=== PATIENT | female | born 1940 | race Caucasian/White ===

== ENCOUNTER 2017-09-02 11:01 | Inpatient (IN) | payer MEDICARE, OTHER ==
[2017-09-02] MEDS ORDERED: ONDANSETRON 4 MG INJ IV (12:00)
[2017-09-02] MEDS: HYDROmorphONE 1 MG/ML SYG IV ×2 (12:07→18:19)
[2017-09-02] MEDS: ONDANSETRON 4 MG INJ IV (12:08)
[2017-09-02 12:41] LABS: ADD MAN DIFF? NO
[2017-09-02 12:55] LABS: BASOPHILS % 0.3 % (0.0-2.0); EOSINOPHILS # 0.1 10^3/ul (0.0-0.5); EOSINOPHILS % 0.7 % (0.0-7.0); HEMATOCRIT 44.4 % (37.0-47.0); HEMOGLOBIN 14.5 g/dl (12.0-16.0); LYMPHOCYTES # 1.1 10^3/ul (0.8-2.9); LYMPHOCYTES % 9.8 % (15.0-51.0); MEAN CORPUSCULAR HEMOGLOBIN 31.2 pg (29.0-33.0); MEAN CORPUSCULAR HGB CONC 32.7 g/dl (32.0-37.0); MEAN CORPUSCULAR VOLUME 95.5 fl (82.0-101.0); MEAN PLATELET VOLUME 10.7 fl (7.4-10.4); MONOCYTE # 0.7 10^3/ul (0.3-0.9); MONOCYTES % 6.9 % (0.0-11.0); NEUTROPHIL # 8.8 10^3/ul (1.6-7.5); NEUTROPHILS % 81.9 % (39.0-77.0); PLATELET COUNT 176 10^3/UL (140-415); RED BLOOD COUNT 4.65 10^6/ul (4.20-5.40); RED CELL DISTRIBUTION WIDTH 13.8 % (11.5-14.5)
[2017-09-02 12:55] LABS: WHITE BLOOD COUNT 10.7 10^3/ul (4.8-10.8)
[2017-09-02 13:03] LABS: ANION GAP 12 (8-16); BLOOD UREA NITROGEN 13 mg/dl (7-20); CALCIUM 9.9 mg/dl (8.4-10.2); CARBON DIOXIDE 32 mmol/L (21-31); CHLORIDE 105 mmol/L (97-110); CREATININE 1.01 mg/dl (0.44-1.00); GLUCOSE 109 mg/dl (70-220); POTASSIUM 5.5 mmol/L (3.5-5.1); SODIUM 143 mmol/L (135-144)
[2017-09-02] MEDS ORDERED: oxyCODONE 5 MG TAB PO ×5 (15:30→16:00)
[2017-09-02] MEDS: oxyCODONE 5 MG TAB PO ×2 (16:36→22:52)
[2017-09-02] MEDS ORDERED: NAPROXEN 500 MG TAB PO (22:00)
[2017-09-02] MEDS ORDERED: ALBUTEROL HFA 8 GM INHALER INH (22:30)
[2017-09-02] MEDS: LOSARTAN 50 MG TAB PO (22:48)
[2017-09-02] MEDS: ACETAMINOPHEN 325 MG TAB PO (23:43)
[2017-09-03] MEDS: HYDROmorphONE 1 MG/ML SYG IV ×4 (00:58→18:47)
[2017-09-03] MEDS: ONDANSETRON 4 MG INJ IV ×4 (00:58→18:47)
[2017-09-03 05:00] LABS: ADD MAN DIFF? NO
[2017-09-03 05:06] LABS: WHITE BLOOD COUNT 9.1 10^3/ul (4.8-10.8)
[2017-09-03 05:06] LABS: BASOPHILS % 0.2 % (0.0-2.0); EOSINOPHILS # 0.3 10^3/ul (0.0-0.5); EOSINOPHILS % 2.7 % (0.0-7.0); HEMATOCRIT 42.4 % (37.0-47.0); HEMOGLOBIN 13.4 g/dl (12.0-16.0); LYMPHOCYTES # 1.9 10^3/ul (0.8-2.9); LYMPHOCYTES % 21.1 % (15.0-51.0); MEAN CORPUSCULAR HEMOGLOBIN 30.1 pg (29.0-33.0); MEAN CORPUSCULAR HGB CONC 31.6 g/dl (32.0-37.0); MEAN CORPUSCULAR VOLUME 95.3 fl (82.0-101.0); MEAN PLATELET VOLUME 10.9 fl (7.4-10.4); MONOCYTES % 10.6 % (0.0-11.0); NEUTROPHIL # 5.9 10^3/ul (1.6-7.5); NEUTROPHILS % 65.1 % (39.0-77.0); PLATELET COUNT 166 10^3/UL (140-415); RED BLOOD COUNT 4.45 10^6/ul (4.20-5.40); RED CELL DISTRIBUTION WIDTH 13.8 % (11.5-14.5)
[2017-09-03 05:31] LABS: ALANINE AMINOTRANSFERASE 15 IU/L (13-69); ALBUMIN 3.5 g/dl (3.3-4.9); ALKALINE PHOSPHATASE 65 IU/L (42-121); ANION GAP 10 (8-16); ASPARTATE AMINO TRANSFERASE 24 IU/L (15-46); BILIRUBIN,INDIRECT 0.4 mg/dl (0-1.1); BILIRUBIN,TOTAL 0.4 mg/dl (0.2-1.3); BLOOD UREA NITROGEN 14 mg/dl (7-20); CALCIUM 9.8 mg/dl (8.4-10.2); CARBON DIOXIDE 32 mmol/L (21-31); CHLORIDE 101 mmol/L (97-110); CREATININE 1.07 mg/dl (0.44-1.00); GLUCOSE 106 mg/dl (70-220); POTASSIUM 5.4 mmol/L (3.5-5.1); SODIUM 138 mmol/L (135-144); TOTAL PROTEIN 6.4 g/dl (6.1-8.1)
[2017-09-03 05:42] LABS: LIPASE < 10 U/L (23-300)
[2017-09-03] MEDS: PANTOPRAZOLE (EC) 40 MG TAB PO ×2 (06:00→22:00)
[2017-09-03] MEDS: IOHEXOL 14.3 MG(I)/ML (ADULT) BTL PO (06:58)
[2017-09-03] MEDS ORDERED: NON-FORMULARY/PATIENT OWN MED (Mirabegron (Myrbetriq) 50 MG) PO (09:00)
[2017-09-03] MEDS: oxyCODONE 5 MG TAB PO ×2 (10:32→21:30)
[2017-09-03] MEDS: ESTROGENS CONJUGATED 0.3 MG TAB PO (12:55)
[2017-09-03] MEDS: ASPIRIN (EC) 81 MG TAB PO (12:55)
[2017-09-03] MEDS: FLUOXETINE 20 MG CAP PO (12:55)
[2017-09-03] MEDS: GABAPENTIN 300 MG CAP PO ×2 (12:55→22:14)
[2017-09-03] MEDS: LIDOCAINE 5% PATCH TD (12:55)
[2017-09-03] MEDS: AMLODIPINE 5 MG TAB PO ×2 (13:35→22:14)
[2017-09-03] MEDS: ATENOLOL 50 MG TAB PO (13:35)
[2017-09-03] MEDS ORDERED: BISACODYL (EC) 5 MG TAB PO (15:30)
[2017-09-03] MEDS ORDERED: ALBUTEROL HFA 8 GM INHALER INH (16:00)
[2017-09-03] MEDS ORDERED: POTASSIUM CITRATE (SR) 5 MEQ TAB PO ×2 (21:00)
[2017-09-03] MEDS: CALCIUM POLYCARBOPHIL 625 MG TAB PO (22:02)
[2017-09-03] MEDS: DOCUSATE SODIUM 100 MG CAP PO (22:02)
[2017-09-03] MEDS: clonAZEPAM 0.5 MG TAB PO (22:02)
[2017-09-03] MEDS: ATORVASTATIN 40 MG TAB PO (22:14)
[2017-09-03] MEDS: LOSARTAN 50 MG TAB PO (22:14)
[2017-09-03] MEDS: ONDANSETRON 4 MG TAB PO (22:15)
[2017-09-04] MEDS: ONDANSETRON 4 MG INJ IV ×3 (00:42→17:42)
[2017-09-04] MEDS: HYDROmorphONE 1 MG/ML SYG IV ×2 (00:43→08:50)
[2017-09-04] MEDS: oxyCODONE 5 MG TAB PO (03:31)
[2017-09-04] MEDS: ONDANSETRON 4 MG TAB PO ×3 (06:00→21:36)
[2017-09-04] MEDS ORDERED: PANTOPRAZOLE (EC) 40 MG TAB PO ×2 (06:00→16:00)
[2017-09-04] MEDS: METHYLNALTREXONE 12 MG/0.6 ML VIAL SC ×2 (06:30→08:11)
[2017-09-04] MEDS: traMADol 50 MG TAB PO ×3 (06:41→17:38)
[2017-09-04] MEDS: ACETAMINOPHEN 1000MG/100ML IV 100 ML IVPB ×3 (06:42→17:39)
[2017-09-04] MEDS: ESOMEPRAZOLE 40 MG PO ×3 (07:07→21:13)
[2017-09-04] MEDS ORDERED: PATIENT'S OWN MEDICATION PO (07:20)
[2017-09-04] MEDS: CHOLECALCIFEROL 1,000 UNIT TAB PO (08:43)
[2017-09-04] MEDS: POLYETHYLENE GLYCOL 17 GM PACKET PO (08:44)
[2017-09-04] MEDS: GABAPENTIN 300 MG CAP PO ×2 (08:44→21:15)
[2017-09-04] MEDS: ASPIRIN (EC) 81 MG TAB PO (08:44)
[2017-09-04] MEDS: ASCORBIC ACID 500 MG TAB PO (08:44)
[2017-09-04] MEDS: clonAZEPAM 0.5 MG TAB PO ×2 (08:44→21:37)
[2017-09-04] MEDS: CALCIUM POLYCARBOPHIL 625 MG TAB PO ×2 (08:44→21:13)
[2017-09-04] MEDS: DOCUSATE SODIUM 100 MG CAP PO ×2 (08:44→21:13)
[2017-09-04] MEDS: LOSARTAN 50 MG TAB PO ×2 (08:45→21:14)
[2017-09-04] MEDS: FLUOXETINE 20 MG CAP PO (08:45)
[2017-09-04] MEDS: ATENOLOL 50 MG TAB PO (08:46)
[2017-09-04] MEDS: FLUTICASONE/VILANTEROL 100-25 INH (08:48)
[2017-09-04] MEDS: LIDOCAINE 5% PATCH TRANSDERM (08:51)
[2017-09-04] MEDS: AMLODIPINE 5 MG TAB PO ×2 (08:57→21:17)
[2017-09-04] MEDS: METHYLPREDNISOLONE 125 MG INJ IV ×2 (10:27→21:14)
[2017-09-04] MEDS: ENOXAPARIN 80 MG/0.8 ML SYG SC (17:47)
[2017-09-04] MEDS: ESTROGENS CONJUGATED 0.3 MG TAB PO ×2 (21:00→23:18)
[2017-09-05] MEDS: traMADol 50 MG TAB PO ×4 (00:14→18:53)
[2017-09-05] MEDS: LORAZEPAM 1 MG TAB PO (00:15)
[2017-09-05] MEDS: ACETAMINOPHEN 1000MG/100ML IV 100 ML IVPB ×4 (00:15→18:53)
[2017-09-05] MEDS: ONDANSETRON 4 MG TAB PO ×4 (08:12→21:34)
[2017-09-05] MEDS: ESOMEPRAZOLE 40 MG PO ×3 (08:12→21:09)
[2017-09-05] MEDS: METHYLPREDNISOLONE 125 MG INJ IV ×2 (08:57→21:08)
[2017-09-05] MEDS: CALCIUM POLYCARBOPHIL 625 MG TAB PO ×2 (08:57→21:07)
[2017-09-05] MEDS: clonAZEPAM 0.5 MG TAB PO ×2 (08:58→21:34)
[2017-09-05] MEDS: CHOLECALCIFEROL 1,000 UNIT TAB PO (08:58)
[2017-09-05] MEDS: ATENOLOL 50 MG TAB PO (08:58)
[2017-09-05] MEDS: ASCORBIC ACID 500 MG TAB PO (08:59)
[2017-09-05] MEDS: ASPIRIN (EC) 81 MG TAB PO (08:59)
[2017-09-05] MEDS: AMLODIPINE 5 MG TAB PO ×2 (08:59→21:08)
[2017-09-05] MEDS: GABAPENTIN 300 MG CAP PO ×2 (08:59→21:07)
[2017-09-05] MEDS: POLYETHYLENE GLYCOL 17 GM PACKET PO (08:59)
[2017-09-05] MEDS: LOSARTAN 50 MG TAB PO ×2 (08:59→21:07)
[2017-09-05] MEDS: FLUOXETINE 20 MG CAP PO (08:59)
[2017-09-05] MEDS: DOCUSATE SODIUM 100 MG CAP PO ×2 (09:00→21:06)
[2017-09-05] MEDS: FLUTICASONE/VILANTEROL 100-25 INH (09:00)
[2017-09-05] MEDS: LIDOCAINE 5% PATCH TRANSDERM (09:09)
[2017-09-05] MEDS: MIRABEGRON XX (10:00)
[2017-09-05] MEDS: IBUPROFEN 800 MG TAB PO (12:37)
[2017-09-05] MEDS: MYRBETRIQ 50 MG PO (14:00)
[2017-09-05] MEDS: ENOXAPARIN 80 MG/0.8 ML SYG SC (17:20)
[2017-09-05] MEDS: NITROFURANTOIN (SR) 100 MG CAP PO (21:07)
[2017-09-05] MEDS: DOXAZOSIN 2 MG TAB PO (21:08)
[2017-09-05] MEDS: ESTROGENS CONJUGATED 0.3 MG TAB PO (21:34)
[2017-09-06] MEDS: traMADol 50 MG TAB PO ×5 (00:21→18:29)
[2017-09-06] MEDS: ACETAMINOPHEN 1000MG/100ML IV 100 ML IVPB ×4 (00:21→18:29)
[2017-09-06] MEDS: MIRABEGRON 50 MG PO ×4 (00:21→21:52)
[2017-09-06] MEDS: IBUPROFEN 800 MG TAB PO ×2 (01:44→16:48)
[2017-09-06] MEDS: LORAZEPAM 1 MG TAB PO ×2 (01:44→21:20)
[2017-09-06] MEDS: ONDANSETRON 4 MG TAB PO ×3 (06:00→21:20)
[2017-09-06] MEDS: METHYLNALTREXONE 12 MG/0.6 ML VIAL SC (06:01)
[2017-09-06] MEDS: ESOMEPRAZOLE 40 MG PO ×3 (06:12→21:09)
[2017-09-06] MEDS: METHYLPREDNISOLONE 125 MG INJ IV ×2 (08:16→21:08)
[2017-09-06] MEDS: GABAPENTIN 300 MG CAP PO ×2 (08:17→21:04)
[2017-09-06] MEDS: NITROFURANTOIN (SR) 100 MG CAP PO ×2 (08:17→21:04)
[2017-09-06] MEDS: DOCUSATE SODIUM 100 MG CAP PO ×2 (08:17→21:04)
[2017-09-06] MEDS: CHOLECALCIFEROL 1,000 UNIT TAB PO (08:17)
[2017-09-06] MEDS: CALCIUM POLYCARBOPHIL 625 MG TAB PO ×2 (08:17→21:51)
[2017-09-06] MEDS: FLUOXETINE 20 MG CAP PO (08:18)
[2017-09-06] MEDS: ATENOLOL 50 MG TAB PO (08:18)
[2017-09-06] MEDS: ASPIRIN (EC) 81 MG TAB PO (08:18)
[2017-09-06] MEDS: ASCORBIC ACID 500 MG TAB PO (08:18)
[2017-09-06] MEDS: clonAZEPAM 0.5 MG TAB PO ×2 (08:18→21:20)
[2017-09-06] MEDS: FLUTICASONE/VILANTEROL 100-25 INH (08:19)
[2017-09-06] MEDS: POLYETHYLENE GLYCOL 17 GM PACKET PO (08:19)
[2017-09-06] MEDS: LOSARTAN 50 MG TAB PO ×2 (08:19→21:06)
[2017-09-06] MEDS: AMLODIPINE 5 MG TAB PO ×2 (08:19→21:06)
[2017-09-06] MEDS: LIDOCAINE 5% PATCH TRANSDERM (08:23)
[2017-09-06] MEDS ORDERED: PATIENT'S OWN MEDICATION TRANSDERM (09:00)
[2017-09-06] MEDS: FENTANYL 25 MCG/HR TRANSDERM (10:37)
[2017-09-06] MEDS: ENOXAPARIN 80 MG/0.8 ML SYG SC (18:30)
[2017-09-06] MEDS: DOXAZOSIN 2 MG TAB PO (21:06)
[2017-09-06] MEDS: ESTROGENS CONJUGATED 0.3 MG TAB PO (21:51)
[2017-09-07] MEDS: traMADol 50 MG TAB PO ×5 (00:37→23:32)
[2017-09-07] MEDS: ACETAMINOPHEN 1000MG/100ML IV 100 ML IVPB ×5 (00:37→23:34)
[2017-09-07] MEDS: IBUPROFEN 800 MG TAB PO ×3 (01:33→20:39)
[2017-09-07] MEDS ORDERED: hydrALAzine 20 MG INJ IV (02:30)
[2017-09-07] MEDS: ONDANSETRON 4 MG TAB PO ×3 (06:02→22:19)
[2017-09-07] MEDS: ESOMEPRAZOLE 40 MG PO ×3 (06:04→20:48)
[2017-09-07] MEDS: DOCUSATE SODIUM 100 MG CAP PO ×2 (08:37→22:14)
[2017-09-07] MEDS: ASPIRIN (EC) 81 MG TAB PO (08:37)
[2017-09-07] MEDS: GABAPENTIN 300 MG CAP PO ×2 (08:37→22:14)
[2017-09-07] MEDS: NITROFURANTOIN (SR) 100 MG CAP PO ×2 (08:37→22:13)
[2017-09-07] MEDS: FLUTICASONE/VILANTEROL 100-25 INH (08:37)
[2017-09-07] MEDS: POLYETHYLENE GLYCOL 17 GM PACKET PO (08:37)
[2017-09-07] MEDS: METHYLPREDNISOLONE 125 MG INJ IV (08:38)
[2017-09-07] MEDS: CHOLECALCIFEROL 1,000 UNIT TAB PO (08:38)
[2017-09-07] MEDS: clonAZEPAM 0.5 MG TAB PO ×2 (08:38→22:14)
[2017-09-07] MEDS: FLUOXETINE 20 MG CAP PO (08:38)
[2017-09-07] MEDS: ASCORBIC ACID 500 MG TAB PO (08:38)
[2017-09-07] MEDS: LOSARTAN 50 MG TAB PO ×2 (08:39→22:13)
[2017-09-07] MEDS: AMLODIPINE 5 MG TAB PO ×2 (08:39→22:14)
[2017-09-07] MEDS: ATENOLOL 50 MG TAB PO (08:39)
[2017-09-07] MEDS: LIDOCAINE 5% PATCH TRANSDERM (09:09)
[2017-09-07] MEDS: CALCIUM POLYCARBOPHIL 625 MG TAB PO ×2 (12:19→22:26)
[2017-09-07] MEDS: ENOXAPARIN 80 MG/0.8 ML SYG SC (17:23)
[2017-09-07] MEDS: MIRABEGRON 50 MG PO (20:48)
[2017-09-07] MEDS: ESTROGENS CONJUGATED 0.3 MG TAB PO (22:13)
[2017-09-07] MEDS: DOXAZOSIN 2 MG TAB PO (22:14)
[2017-09-07] MEDS: LORAZEPAM 1 MG TAB PO (23:28)
[2017-09-08] MEDS: HYDROmorphONE 0.5 MG/0.5 ML SYG IV (01:18)
[2017-09-08] MEDS: traMADol 50 MG TAB PO ×3 (06:20→18:41)
[2017-09-08] MEDS: ONDANSETRON 4 MG TAB PO ×3 (06:21→22:07)
[2017-09-08] MEDS: METHYLNALTREXONE 12 MG/0.6 ML VIAL SC (06:21)
[2017-09-08] MEDS: ACETAMINOPHEN 1000MG/100ML IV 100 ML IVPB ×3 (06:23→22:06)
[2017-09-08] MEDS: IBUPROFEN 800 MG TAB PO ×2 (07:38→16:23)
[2017-09-08] MEDS: ESOMEPRAZOLE 40 MG PO ×3 (09:08→20:53)
[2017-09-08] MEDS: CHOLECALCIFEROL 1,000 UNIT TAB PO (09:09)
[2017-09-08] MEDS: ASCORBIC ACID 500 MG TAB PO (09:10)
[2017-09-08] MEDS: AMLODIPINE 5 MG TAB PO ×2 (09:10→20:56)
[2017-09-08] MEDS: NITROFURANTOIN (SR) 100 MG CAP PO ×2 (09:11→20:52)
[2017-09-08] MEDS: POLYETHYLENE GLYCOL 17 GM PACKET PO (09:11)
[2017-09-08] MEDS: clonAZEPAM 0.5 MG TAB PO ×2 (09:11→20:51)
[2017-09-08] MEDS: ATENOLOL 50 MG TAB PO (09:12)
[2017-09-08] MEDS: GABAPENTIN 300 MG CAP PO ×2 (09:12→20:52)
[2017-09-08] MEDS: FLUOXETINE 20 MG CAP PO (09:12)
[2017-09-08] MEDS: ASPIRIN (EC) 81 MG TAB PO (09:12)
[2017-09-08] MEDS: CALCIUM POLYCARBOPHIL 625 MG TAB PO ×2 (09:13→20:52)
[2017-09-08] MEDS: LOSARTAN 50 MG TAB PO ×2 (09:13→20:55)
[2017-09-08] MEDS: DOCUSATE SODIUM 100 MG CAP PO ×2 (09:13→20:52)
[2017-09-08] MEDS: FLUTICASONE/VILANTEROL 100-25 INH (09:14)
[2017-09-08] MEDS: LIDOCAINE 5% PATCH TRANSDERM (09:38)
[2017-09-08] MEDS: ENOXAPARIN 80 MG/0.8 ML SYG SC (18:40)
[2017-09-08] MEDS: ESTROGENS CONJUGATED 0.3 MG TAB PO (20:51)
[2017-09-08] MEDS: MIRABEGRON 50 MG PO (20:53)
[2017-09-08] MEDS: DOXAZOSIN 2 MG TAB PO (20:56)
[2017-09-08] MEDS: HYDROmorphONE 2 MG TAB PO (22:09)
[2017-09-09] MEDS: LORAZEPAM 1 MG TAB PO ×2 (00:54→22:45)
[2017-09-09] MEDS: IBUPROFEN 800 MG TAB PO ×2 (00:59→20:38)
[2017-09-09] MEDS: traMADol 50 MG TAB PO ×2 (03:56→17:38)
[2017-09-09] MEDS: ACETAMINOPHEN 1000MG/100ML IV 100 ML IVPB ×3 (06:18→21:52)
[2017-09-09] MEDS: ONDANSETRON 4 MG TAB PO ×3 (06:18→21:52)
[2017-09-09] MEDS: ESOMEPRAZOLE 40 MG PO ×3 (06:21→20:33)
[2017-09-09] MEDS: ATENOLOL 50 MG TAB PO (08:21)
[2017-09-09] MEDS: CHOLECALCIFEROL 1,000 UNIT TAB PO (08:21)
[2017-09-09] MEDS: FLUOXETINE 20 MG CAP PO (08:22)
[2017-09-09] MEDS: NITROFURANTOIN (SR) 100 MG CAP PO ×2 (08:22→20:32)
[2017-09-09] MEDS: AMLODIPINE 5 MG TAB PO ×2 (08:22→20:32)
[2017-09-09] MEDS: CALCIUM POLYCARBOPHIL 625 MG TAB PO ×2 (08:22→20:32)
[2017-09-09] MEDS: ASCORBIC ACID 500 MG TAB PO (08:22)
[2017-09-09] MEDS: GABAPENTIN 300 MG CAP PO ×2 (08:22→20:33)
[2017-09-09] MEDS: ASPIRIN (EC) 81 MG TAB PO (08:23)
[2017-09-09] MEDS: LOSARTAN 50 MG TAB PO ×2 (08:23→20:32)
[2017-09-09] MEDS: HYDROmorphONE 2 MG TAB PO ×4 (08:48→21:52)
[2017-09-09] MEDS: LIDOCAINE 5% PATCH TRANSDERM (08:55)
[2017-09-09] MEDS: FLUTICASONE/VILANTEROL 100-25 INH (09:00)
[2017-09-09] MEDS: POLYETHYLENE GLYCOL 17 GM PACKET PO (09:46)
[2017-09-09] MEDS: DOCUSATE SODIUM 100 MG CAP PO ×2 (09:46→20:32)
[2017-09-09] MEDS: clonAZEPAM 0.5 MG TAB PO ×2 (09:46→20:32)
[2017-09-09] MEDS: FENTANYL 25 MCG/HR TRANSDERM (10:38)
[2017-09-09] MEDS: ENOXAPARIN 80 MG/0.8 ML SYG SC (17:40)
[2017-09-09] MEDS: MIRABEGRON 50 MG PO (20:33)
[2017-09-09] MEDS: DOXAZOSIN 2 MG TAB PO (20:33)
[2017-09-09] MEDS: ESTROGENS CONJUGATED 0.3 MG TAB PO (21:00)
[2017-09-10] MEDS: traMADol 50 MG TAB PO ×3 (01:12→07:40)
[2017-09-10] MEDS: IBUPROFEN 800 MG TAB PO (04:05)
[2017-09-10] MEDS: ONDANSETRON 4 MG TAB PO (05:32)
[2017-09-10] MEDS: METHYLNALTREXONE 12 MG/0.6 ML VIAL SC (05:32)
[2017-09-10] MEDS: ACETAMINOPHEN 1000MG/100ML IV 100 ML IVPB (05:32)
[2017-09-10] MEDS: HYDROmorphONE 2 MG TAB PO ×2 (05:40→11:58)
[2017-09-10] MEDS: ESOMEPRAZOLE 40 MG PO (05:40)
[2017-09-10] MEDS: KETOROLAC 30 MG INJ IV (08:36)
[2017-09-10] MEDS: ASPIRIN (EC) 81 MG TAB PO (08:37)
[2017-09-10] MEDS: clonAZEPAM 0.5 MG TAB PO (08:37)
[2017-09-10] MEDS: CALCIUM POLYCARBOPHIL 625 MG TAB PO (08:37)
[2017-09-10] MEDS: NITROFURANTOIN (SR) 100 MG CAP PO (08:37)
[2017-09-10] MEDS: GABAPENTIN 300 MG CAP PO (08:37)
[2017-09-10] MEDS: ASCORBIC ACID 500 MG TAB PO (08:37)
[2017-09-10] MEDS: ATENOLOL 50 MG TAB PO (08:38)
[2017-09-10] MEDS: AMLODIPINE 5 MG TAB PO (08:38)
[2017-09-10] MEDS: FLUOXETINE 20 MG CAP PO (08:38)
[2017-09-10] MEDS: POLYETHYLENE GLYCOL 17 GM PACKET PO (08:39)
[2017-09-10] MEDS: DOCUSATE SODIUM 100 MG CAP PO (08:39)
[2017-09-10] MEDS: LOSARTAN 50 MG TAB PO (08:39)
[2017-09-10] MEDS: CHOLECALCIFEROL 1,000 UNIT TAB PO (08:39)
[2017-09-10] MEDS: LIDOCAINE 5% PATCH TRANSDERM (08:41)
[2017-09-10] MEDS: FLUTICASONE/VILANTEROL 100-25 INH (12:38)
== END 2017-09-10 13:30 | DRG 552 ==
LOC: E/R 11:01 → PP2 11:35 → MS1 23:10
DX: M51.16 Intervertebral disc disorders with radiculopathy, lumbar region (principal); N39.0 Urinary tract infection, site not specified; F11.20 Opioid dependence, uncomplicated; M54.5 Low back pain; G89.4 Chronic pain syndrome; I10 Essential (primary) hypertension; F32.9 Major depressive disorder, single episode, unspecified; I25.10 Atherosclerotic heart disease of native coronary artery without angina pectoris; M19.90 Unspecified osteoarthritis, unspecified site; E78.5 Hyperlipidemia, unspecified; E03.9 Hypothyroidism, unspecified; N20.0 Calculus of kidney; Z96.653 Presence of artificial knee joint, bilateral; Z96.612 Presence of left artificial shoulder joint; Z96.611 Presence of right artificial shoulder joint; E66.01 Morbid (severe) obesity due to excess calories; Z68.37 Body mass index [BMI] 37.0-37.9, adult; M48.061 Spinal stenosis, lumbar region without neurogenic claudication; F41.9 Anxiety disorder, unspecified; J45.40 Moderate persistent asthma, uncomplicated; K59.03 Drug induced constipation; K21.9 Gastro-esophageal reflux disease without esophagitis; R33.9 Retention of urine, unspecified; Z98.61 Coronary angioplasty status; B96.20 Unspecified Escherichia coli [E. coli] as the cause of diseases classified elsewhere; M41.9 Scoliosis, unspecified
CPT/HCPCS: 72148; 74176; 80048; 80053; 83690; 84443; 85025; 85651; 87086; 93005; 97110; 97116; 97162; 97530; 99285-25; G0378